=== PATIENT | female | born 1960 | race Caucasian/White ===

== ENCOUNTER 2021-04-18 14:05 | Emergency (ER) | payer BC, OTHER ==
[~2021-04-18] VITALS: Ht 157.5 cm; Wt 84.1 kg
[2021-04-18] MEDS ORDERED: MORPHINE 4 MG/ML 1ML VIAL/SYRINGE (J2270) IV ONE (20:05)
[2021-04-18] MEDS ORDERED: GABAPENTIN 300 MG CAP PO ONE (20:05)
[2021-04-18] MEDS ORDERED: DULoxetine 30 MG CAP (CYMBALTA) PO ONE (20:05)
[2021-04-18 21:09] LABS: BASO # 0.1 10^3/uL (0.0-0.2); BASO % 0.7 % (0.0-1.0); EOS # 0.4 10^3/uL (0.0-0.5); EOS % 4.2 % (0.0-3.0); HEMOGLOBIN 10.6 g/dl (12.0-15.5); LYMPH # 2.3 10^3/uL (1.5-5.0); LYMPH % 25.7 % (24.0-44.0); MEAN CORPUSCULAR HEMOGLOBIN 26.2 pg (27.0-33.0); MEAN CORPUSCULAR HGB CONC 30.3 g/dl (32.0-36.5); MEAN CORPUSCULAR VOLUME 86.6 fl (80.0-96.0); MONO % 11.5 % (2.0-8.0); NEUTROPHILS # 5.1 10^3/uL (1.5-8.5); NEUTROPHILS % 57.6 % (36.0-66.0); PLATELET COUNT, AUTOMATED 402 10^3/uL (150-450); RED BLOOD COUNT 4.04 10^6/uL (4.00-5.40); WHITE BLOOD COUNT 8.9 10^3/uL (4.0-10.0)
[2021-04-18 21:30] LABS: BLOOD UREA NITROGEN 8 MG/DL (7-18); CALCIUM LEVEL 9.1 MG/DL (8.8-10.2); CARBON DIOXIDE LEVEL 31 MEQ/L (21-32); CHLORIDE LEVEL 105 MEQ/L (98-107); CREATININE FOR GFR 0.66 MG/DL (0.55-1.30); GLOMERULAR FILTRATION RATE > 60.0 (>45); GLUCOSE, FASTING 97 MG/DL (70-100); POTASSIUM SERUM 4.5 MEQ/L (3.5-5.1); SODIUM LEVEL 139 MEQ/L (136-145)
--- NOTE | 2021-04-18 22:10 | REPVR ---
PROCEDURE INFORMATION: Exam: XR Right Ankle Exam date and time: 04/18/21 (9:09pm) Age: 61 years old Clinical indication: Fall. Sprain or strain. TECHNIQUE: Imaging protocol: XR Right ankle Views: 3 or more views COMPARISON: No relevant prior studies available FINDINGS: Bones/joints: No acute fracture nor dislocation. Some diffuse bony demineralization. Soft tissues: Diffuse soft tissue swelling. IMPRESSION: No acute fracture nor dislocation. Diffuse soft tissue swelling. Electronically signed by: Dracy Christopher On 04/18/2021 22:09:39 PM
--- NOTE | 2021-04-18 22:14 | REPVR ---
PROCEDURE INFORMATION: Exam: XR Right Hip Exam date and time: 04/18/21 (8:58pm) Age: 61 years old Clinical indication: Fall. Right hip pain. Sprain or strain. TECHNIQUE: Imaging protocol: XR Right hip Views: 2 or 3 views hip with pelvis when performed COMPARISON: No relevant prior studies available FINDINGS: Bones/joints: Unremarkable. No acute fracture nor dislocation. Soft tissues: Unremarkable. Multiple surgical clips project over the lower abdomen, pelvis, and each groin area. Hardware projects over the L4 and L5 vertebral bodies, in the midline. IMPRESSION: No acute findings. Electronically signed by: Darcy Christopher On 04/18/2021 22:13:54 PM
--- NOTE | 2021-04-18 22:21 | REPVR ---
PROCEDURE INFORMATION: Exam: XR Right Knee Exam date and time: 04/18/21 (9:03pm) Age: 61 years old Clinical indication: Trauma. Right knee pain TECHNIQUE: Imaging protocol: XR Right knee Views: 4 or more views COMPARISON: No relevant prior studies available FINDINGS: Diffuse bony demineralization. Degenerative changes at the right knee joint. Mild hypertrophic changes involving the tibial spines. Mild chondrocalcinosis changes at the knee joint may also be present. Possible thin vertically oriented nondisplaced fracture involving the lateral portion of the tibial plateau (Ser. 6 - Image #1). No dislocation. Suprapatellar effusion is present. IMPRESSION: Chronic degenerative changes at the right knee joint. No dislocation. Suprapatellar effusion is present. Possible thin vertically oriented nondisplaced fracture involving the lateral portion of the tibial plateau. If felt appropriate, a non-enhanced CT scan of the right knee can be obtained for further evaluation. Electronically signed by: Darcy Christopher On 04/18/2021 22:20:32 PM
[2021-04-18 22:57] VITALS: BP 151/65
== END 2021-04-18 23:30 | disposition home or self-care (01) ==
LOC: M ED 14:05
DX: S82.141A Displaced bicondylar fracture of right tibia, initial encounter for closed fracture (principal); X50.9XXA Other and unspecified overexertion or strenuous movements or postures, initial encounter; V91.88XA Other injury due to other accident to other unpowered watercraft, initial encounter; Y92.838 Other recreation area as the place of occurrence of the external cause; Z88.1 Allergy status to other antibiotic agents; Z88.8 Allergy status to other drugs, medicaments and biological substances
CPT/HCPCS: 73502; 73564; 73610; 80048; 85025; 86850; 86900; 86901; 96374; 99284; J2270